=== PATIENT | female | born 1965 | race Caucasian/White ===

== ENCOUNTER 2020-07-08 07:30 | Outpatient (CLI) | payer OTHER, SELFPAY ==
--- NOTE | ~2020-07-08 | CT_ITS ---
EXAMINATION: CTA neck EXAM DATE: 07/08/2020 08:21 INDICATION: B/L Carotid stenosis. TECHNIQUE: Spiral CTA of the carotid arteries was performed with intravenous injection 100cc of Omnip aque 350. Axial, coronal, sagittal reformatted images reviewed. Additional reformatted images creat ed on dedicated 3-D workstation. NASCET comparable standard used to assess the degree of arterial st enosis. The dose-length product (DLP) for this examination was 585.37 mGy-cm. The exposure was tail ored according to patient size (auto mA exposure control), and iterative reconstruction (ASIR) was us ed as additional dose reduction technique. There is no prior study for comparison. FINDINGS: Normal aortic arch configuration. The left vertebral artery is dominant. No dissection. The carotid bulbs are nearly midline. The internal carotid arteries are tortuous bilaterally. There is m ild bilateral carotid bulb plaque, 0% stenosis bilaterally. No evidence of fibromuscular dysplasia. C ircle of Finn was also imaged, no evidence of aneurysm. There is left-sided posterior communicating artery dominant posterior cerebral artery. Mild bilateral carotid siphon arterial sclerosis without stenosis. Mild to moderate apical emphysema. No cervical lymphadenopathy. Unremarkable submandibular, thyroid, parotid glands. Trace left mastoid fluid. Mild cervical spondylosis. IMPRESSION: 1. Carotid tortuosity, 0% stenosis bilaterally. 2. Mild to moderate emphysema. Reviewed, dictated and finalized at location A.
[2020-07-08 07:54] LABS: Estimated Glomerular Filt Rate > 60
== END 2020-07-08 07:31 | disposition home or self-care (01) ==
LOC: CHSIMG 07:34
PROVIDERS: PCP Physician Assistant; Visit Provider Physician Assistant
DX: I65.23 Occlusion and stenosis of bilateral carotid arteries (principal)
CPT/HCPCS: 70498; Q9967